=== PATIENT | female | born 1940 | race Caucasian/White ===

== ENCOUNTER 2020-11-18 07:03 | Inpatient (IN) | payer MEDICARE ==
[2020-11-18] MEDS ORDERED: BABY ASPIRIN 81 MG CHEW PO ONE (07:27)
[2020-11-18] MEDS ORDERED: DECADRON 10MG INJ. IV ONE (07:30)
[2020-11-18] MEDS ORDERED: DECADRON 10MG INJ. ONE (07:33)
[2020-11-18] MEDS ORDERED: BABY ASPIRIN 81 MG CHEW ONE (07:33)
[2020-11-18] MEDS ORDERED: TYLENOL EXTRA STRENGTH 500 MG PO STA (07:36)
[2020-11-18] MEDS ORDERED: TYLENOL EXTRA STRENGTH 500 MG ONE (07:37)
--- NOTE | 2020-11-18 07:38 | ERPHSYRPT ---
- History of Present Illness Time Seen by Provider: 11/18/20 07:22 Source: patient Patient Subjective Stated Complaint: Fever Triage Nursing Assessment: ... Physician History: Patient is here with cough, shortness of breath and weakness. Patient states that the symptoms have been going on for for a few days. Patient states that she last had a Covid swab on November 06. She then visited her and [facility]. Her symptoms started soon after. She has no falls or trauma or chest pain. Location: generalized Quality: malasie, SOB, weakness Radiation: none Severity: moderate Duration: "a few days" Timing: gradual Modifying factors/associated signs and symptoms: home OTC Allergies/Adverse Reactions: No Known Drug Allergies Allergy (Unverified 11/18/20 07:23) Home Medications: Levothyroxine Sodium 1 tab PO DAILY 11/18/20 [History] Hx Influenza Vaccination/Date Given: No Hx Pneumococcal Vaccination/Date Given: No Immunizations Up to Date: Yes Travel Risk - International Travel Have you traveled outside of the country in past 3 weeks: No - Coronavirus Screening Are you exhibiting any of the following symptoms?: Yes Symptoms: Fever, Cough: New Onset, Shortness of Breath, Vomiting/Diarrhea, Headaches/Body Aches/Fatigue Close contact with a COVID-19 positive Pt in past 14-21 Days: No - Review of Systems Constitutional: Fever, Chills, Malaise Eyes: No Symptoms Ears, Nose, & Throat: No Symptoms Respiratory: Cough, Dyspnea Cardiac: No Chest Pain, No Edema, No Syncope Abdominal/Gastrointestinal: No Abdominal Pain, No Nausea, No Vomiting, No Diarrhea Genitourinary Symptoms: No Dysuria Musculoskeletal: No Back Pain, No Neck Pain Skin: No Rash Neurological: No Dizziness, No Focal Weakness, No Sensory Changes Psychological: No Symptoms Endocrine: No Symptoms All Other Systems: Reviewed and Negative - Past Medical History Pertinent Past Medical History: Yes Neurological History: No Pertinent History ENT History: No Pertinent History Cardiac History: No Pertinent History Respiratory History: No Pertinent History Endocrine Medical History: Hypothyroidism Musculoskeletal History: No Pertinent History GI Medical History: No Pertinent History History: No Pertinent History Psycho-Social History: No Pertinent History Female Reproductive Disorders: No Pertinent History - Past Surgical History Past Surgical History: Yes Neuro Surgical History: No Pertinent History Cardiac: No Pertinent History Respiratory: No Pertinent History Gastrointestinal: No Pertinent History Genitourinary: No Pertinent History Musculoskeletal: Orthopedic Surgery Female Surgical History: No Pertinent History Other Surgical History: Right hip replacement, Back surgery X 2. - Social History Smoking Status: Never smoker Exposure to second hand smoke: No Drug Use: none Patient Lives Alone: Yes - Nursing Vital Signs Nursing Vital Signs: Initial Vital Signs Temperature 100.0 F 11/18/20 07:25 Pulse Rate 131 H 11/18/20 07:25 Respiratory Rate 25 H 11/18/20 07:25 Blood Pressure 148/113 11/18/20 07:25 O2 Sat by Pulse Oximetry 88 L 11/18/20 07:25 Pain Scale Pain Intensity 0 - Physical Exam General Appearance: no apparent distress, alert Eye Exam: PERRL/EOMI, eyes nml inspection Ears, Nose, Throat Exam: normal ENT inspection, TMs normal, pharynx normal, moist mucous membranes Neck Exam: normal inspection, non-tender, supple, full range of motion Respiratory Exam: crackles/rales, No respiratory distress Cardiovascular Exam: regular rate/rhythm, normal heart sounds, normal peripheral pulses Gastrointestinal/Abdomen Exam: soft, normal bowel sounds, No tenderness, No mass Back Exam: normal inspection, normal range of motion, No CVA tenderness, No vertebral tenderness Extremity Exam: normal inspection, normal range of motion, pelvis stable Neurologic Exam: alert, oriented x 3, cooperative, normal mood/affect, nml cerebellar function, nml station & gait, sensation nml, No motor deficits Skin Exam: normal color, warm, dry, No rash Lymphatic Exam: No adenopathy SpO2: 88 - Course Nursing assessment & vital signs reviewed: Yes EKG Interpreted by Me: Sinus Rhythm Ordered Tests: Active Orders 24 hr Category Date Time Status Boiler Repairman STAT Care 11/18/20 07:28 Active EKG-ER Only STAT Care 11/18/20 07:27 Active IV Insertion STAT Care 11/18/20 07:27 Active CHEST 1 VIEW (PORTABLE) Stat Exams 11/18/20 07:57 Completed CBC W DIFF Stat Lab 11/18/20 07:49 Completed CMP Stat Lab 11/18/20 07:49 Completed CULTURE,URINE Stat Lab 11/18/20 07:44 Received D-DIMER QUANTITATIVE Stat Lab 11/18/20 09:47 Ordered LIPASE Stat Lab 11/18/20 07:49 Completed NT PRO BNP Stat Lab 11/18/20 07:49 Completed TROPONIN Q3H Lab 11/18/20 07:49 Completed TROPONIN Q3H Lab 11/18/20 10:30 Ordered TROPONIN Q3H Lab 11/18/20 13:30 Ordered TROPONIN Q3H Lab 11/18/20 16:30 Ordered TROPONIN Q3H Lab 11/18/20 19:30 Ordered UA W/RFX UR CULTURE Stat Lab 11/18/20 07:44 Completed Medication Summary Discontinued Medications Generic Name Dose Route Start Last Admin Trade Name Freq PRN Reason Stop Dose Admin Acetaminophen 1,000 mg 11/18/20 07:36 11/18/20 07:48 Tylenol Extra Strength 500 Mg PO 11/18/20 07:37 1,000 mg STAT STA Administration Acetaminophen Confirm 11/18/20 07:37 Tylenol Extra Strength 500 Mg Administered 11/18/20 07:38 Dose 1,000 mg .ROUTE .STK-MED ONE Aspirin 324 mg 11/18/20 07:27 11/18/20 07:47 Baby Aspirin 81 Mg Chew PO 11/18/20 07:28 324 mg STAT ONE Administration Aspirin Confirm 11/18/20 07:33 Baby Aspirin 81 Mg Chew Administered 11/18/20 07:34 Dose 324 mg .ROUTE .STK-MED ONE Dexamethasone Sodium Phosphate 8 mg 11/18/20 07:30 11/18/20 07:50 Decadron 10mg Inj. IV 11/18/20 07:31 8 mg STAT ONE Administration Dexamethasone Sodium Phosphate Confirm 11/18/20 07:33 Decadron 10mg Inj. Administered 11/18/20 07:34 Dose 10 mg .ROUTE .STK-MED ONE Sodium Chloride 500 mls @ 500 mls/hr 11/18/20 07:50 11/18/20 09:45 Sodium Chloride 0.9% 500 Ml IV 11/18/20 08:49 Infused .Q1H ONE Infusion Sodium Chloride Confirm 11/18/20 07:53 Sodium Chloride 0.9% 500 Ml Administered 11/18/20 07:54 Dose 500 mls @ ud IV .STK-MED ONE Lab/Rad Data: Laboratory Result Diagrams 11/18/20 07:49 11/18/20 07:49 Laboratory Results 11/18/20 11/18/20 11/18/20 Range/Units 08:19 07:49 07:49 WBC (4.0-10.5) K/mm3 RBC (4.1-5.4) M/mm3 Hgb (12.0-16.0) gm/dl Hct (35-47) % MCV (78-100) fl MCH (26-32) pg MCHC (32-36) g/dl RDW (11.5-14.0) % Plt Count (150-450) K/mm3 MPV (7.5-11.0) fl Gran % (36.0-66.0) % Eos # (Auto) (0-0.5) Absolute Lymphs (auto) (1.0-4.6) Absolute Monos (auto) (0.0-1.3) Lymphocytes % (24.0-44.0) % Monocytes % (0.0-12.0) % Eosinophils % (0.00-5.0) % Basophils % (0.0-0.4) % Absolute Granulocytes (1.4-6.9) Basophils # (0-0.4) Sodium 130 L (137-145) mmol/L Potassium 3.7 (3.5-5.1) mmol/L Chloride 94 L (98-107) mmol/L Carbon Dioxide 26 (22-30) mmol/L Anion Gap 13.4 (5-15) MEQ/L BUN 21 H (7-17) mg/dL Creatinine 0.98 (0.52-1.04) mg/dL Estimated GFR 57.7 ML/MIN Glucose 160 H (74-106) mg/dL Calcium 9.1 (8.4-10.2) mg/dL Total Bilirubin 1.10 (0.2-1.3) mg/dL AST 45 H (14-36) U/L ALT 31 (0-35) U/L Alkaline Phosphatase 76 (38-126) U/L Troponin I 0.036 H* (0.000-0.034) ng/mL NT-Pro-B Natriuret Pep 627 (0-1800) pg/mL Serum Total Protein 7.6 (6.3-8.2) g/dL Albumin 4.0 (3.5-5.0) g/dL Lipase 429 H (23-300) U/L Urine Color (YELLOW) Urine Appearance (CLEAR) Urine pH (5-6) Ur Specific Hob[place] (1.005-1.025) Urine Protein (Negative) Urine Ketones (NEGATIVE) Urine Blood (0-5) Naga/ul Urine Nitrite (NEGATIVE) Urine Bilirubin (NEGATIVE) Urine Urobilinogen (0-1) mg/dL Ur Leukocyte Esterase (NEGATIVE) Urine WBC (Auto) (0-5) /HPF Urine RBC (Auto) (0-2) /HPF U Epithel Cells (Auto) (FEW) /HPF Urine Bacteria (Auto) (NEGATIVE) /HPF Urine Mucus (Auto) (NEGATIVE) /HPF Urine Culture Reflexed (NO) Urine Glucose (NEGATIVE) mg/dL SARS-CoV-2 (PCR) POSITIVE A (NEGATIVE) Slides for Path Review 11/18/20 11/18/20 Range/Units 07:49 07:44 WBC 11.7 H (4.0-10.5) K/mm3 RBC 4.39 (4.1-5.4) M/mm3 Hgb 14.0 (12.0-16.0) gm/dl Hct 41.4 (35-47) % MCV 94.3 (78-100) fl MCH 31.9 (26-32) pg MCHC 33.8 (32-36) g/dl RDW 12.9 (11.5-14.0) % Plt Count 206 (150-450) K/mm3 MPV 11.0 (7.5-11.0) fl Gran % 92.3 H (36.0-66.0) % Eos # (Auto) 0.01 (0-0.5) Absolute Lymphs (auto) 0.48 L (1.0-4.6) Absolute Monos (auto) 0.37 (0.0-1.3) Lymphocytes % 4.1 L (24.0-44.0) % Monocytes % 3.2 (0.0-12.0) % Eosinophils % 0.1 (0.00-5.0) % Basophils % 0.3 (0.0-0.4) % Absolute Granulocytes 10.77 H (1.4-6.9) Basophils # 0.03 (0-0.4) Sodium (137-145) mmol/L Potassium (3.5-5.1) mmol/L Chloride (98-107) mmol/L Carbon Dioxide (22-30) mmol/L Anion Gap (5-15) MEQ/L BUN (7-17) mg/dL Creatinine (0.52-1.04) mg/dL Estimated GFR ML/MIN Glucose (74-106) mg/dL Calcium (8.4-10.2) mg/dL Total Bilirubin (0.2-1.3) mg/dL AST (14-36) U/L ALT (0-35) U/L Alkaline Phosphatase (38-126) U/L Troponin I (0.000-0.034) ng/mL NT-Pro-B Natriuret Pep (0-1800) pg/mL Serum Total Protein (6.3-8.2) g/dL Albumin (3.5-5.0) g/dL Lipase (23-300) U/L Urine Color OTT[place]EL (YELLOW) Urine Appearance CLOUDY (CLEAR) Urine pH 5.0 (5-6) Ur Specific Hob[place] 1.021 (1.005-1.025) Urine Protein 100 (Negative) Urine Ketones TRACE (NEGATIVE) Urine Blood MODERATE (0-5) Naga/ul Urine Nitrite NEGATIVE (NEGATIVE) Urine Bilirubin NEGATIVE (NEGATIVE) Urine Urobilinogen 2 (0-1) mg/dL Ur Leukocyte Esterase NEGATIVE (NEGATIVE) Urine WBC (Auto) 6-10 (0-5) /HPF Urine RBC (Auto) 0-2 (0-2) /HPF U Epithel Cells (Auto) RARE (FEW) /HPF Urine Bacteria (Auto) RARE (NEGATIVE) /HPF Urine Mucus (Auto) SLIGHT (NEGATIVE) /HPF Urine Culture Reflexed YES (NO) Urine Glucose NEGATIVE (NEGATIVE) mg/dL SARS-CoV-2 (PCR) (NEGATIVE) Slides for Path Review YES - Progress Progress: improved Progress Note: 11/18/20 07:37 Differential diagnosis includes COVID-19, STEMI, infection, pneumonia, UTI, sepsis -We will obtain basic labs, antipyretics, cardiac work-up with a chest x-ray. -Patient is on 2 L of oxygen. She was 88 to 91% upon arrival to the emergency department. 11/18/20 09:52 ED critical care statement As staff physician, I have provided critical care. Time: 45 mins Criteria for critical illness: NSTEMI, COVID19, COVID PNA Treatment and management provided include: Coordination of management with ETC care team, consultants, and inpatient care team. [id number] assessment of condition and response to therapy. Review and interpretation of emergent diagnostic testing. Medical chart review and completion. Direction and immediate supervision of the following therapy: Critical care was time spent personally by me on the following activities: blood draw for specimens, development of treatment plan with patient or surrogate, discussions with consultants, discussions with primary provider, interpretation of cardiac output measurements, evaluation of pa tient's response to treatment, examination of patient, obtaining history from patient or surrogate, ordering and performing treatments and interventions, ordering and review of laboratory studies, ordering and review of radiographic studies, pulse oximetry, re-evaluation of patient's condition and review of old charts. This time was independent of all procedures performed. Dheeraj Pollock I discussed with Dr. Horn. He will admit the patient. After reviewing labs, appropriate imaging, discussion with patient and family. We decided the patient should be admitted to the hospital. I called the inpatient team discussed history, physical and results with them in detail. We decided on the plan of action and admission to [facility]. We agreed on appropriate consults and who would call them. Discussed with Dr.: Other (Justina) Will see patient in: hospital (full admit) Counseled pt/family regarding: lab results, diagnosis, need for follow-up, rad results - Departure Departure Disposition: In-patient Admission Clinical Impression: COVID-19 Condition: Stable Critical Care Time: Yes Critical Care Time(excluding separately billable procedures): Critical 30-74 mins Referrals: GIANLUCA CORBIN MD [Primary Care Provider] -
[2020-11-18] MEDS ORDERED: Sodium Chloride 0.9% 500 ML 500 ML IV ONE ×2 (07:50→07:53)
[2020-11-18 07:51] LABS: Absolute Neutrophil Ct (ANC) 10.77 (1.4-6.9); BASOPHIL % 0.3 % (0.0-0.4); Basophil (Absolute #) 0.03 (0-0.4); Eosinophil % 0.1 % (0.00-5.0); Eosinophil (Absolute #) 0.01 (0-0.5); Hematocrit 41.4 % (35-47); Lymphocyte (Absolute #) 0.48 (1.0-4.6); Lymphocytes % 4.1 % (24.0-44.0); Mean Cell Volume 94.3 fl (78-100); Mean Corpuscular Hemoglobin 31.9 pg (26-32); Mean Corpuscular Hgb Concent. 33.8 g/dl (32-36); Monocyte (Absolute #) 0.37 (0.0-1.3); Monocytes % 3.2 % (0.0-12.0); Neutrophil % 92.3 % (36.0-66.0); Platelet Count 206 K/mm3 (150-450); Red Blood Count 4.39 M/mm3 (4.1-5.4); Red Cell Distribution Width 12.9 % (11.5-14.0); White Blood Count 11.7 K/mm3 (4.0-10.5)
[2020-11-18 07:58] LABS: Appearance CLOUDY (CLEAR); Bacteria RARE /HPF (NEGATIVE); Bilirubin NEGATIVE (NEGATIVE); Blood MODERATE Ery/ul (0-5); Epithelial Cells RARE /HPF (FEW); Glucose NEGATIVE (NEGATIVE); Ketones TRACE (NEGATIVE); Leukocyte Esterase NEGATIVE (NEGATIVE); Mucus SLIGHT /HPF (NEGATIVE); Nitrite NEGATIVE (NEGATIVE); Protein,Urine Dip 100 (Negative); RBC 0-2 /HPF (0-2); Specific Gravity 1.021 (1.005-1.025); Urobilinogen 2 mg/dL (0-1)
[2020-11-18 08:18] LABS: ANION GAP 13.4 MEQ/L (5-15); BILIRUBIN,TOTAL 1.1 mg/dL (0.2-1.3); Calcium 9.1 mg/dL (8.4-10.2); Creatinine 1 0.98 mg/dL (0.52-1.04); EST GLOMERULAR FILTRATION RATE 57.7 ML/MIN; Potassium 3.7 mmol/L (3.5-5.1); Total Protein 7.6 g/dL (6.3-8.2)
[2020-11-18 09:04] LABS: Slide Review 1 YES
--- NOTE | 2020-11-18 09:05 | XRAY ---
Indication: Short of breath. Suspect Covid 19. Comparison: None Portable chest demonstrates subtle diffuse bilateral groundglass airspace disease without consolidation/large effusion. Heart is not enlarged. Bony thorax intact with mild degenerative changes.
[2020-11-18] MEDS ORDERED: Ativan 0.5 MG PO PRN (14:10)
[2020-11-18] MEDS ORDERED: REMDESIVIR 200 MG in Sodium Chloride 0.9% 250 ML 250 ML IV ONE (14:15)
--- NOTE | 2020-11-18 14:24 | HP ---
CHIEF COMPLAINT: Shortness of breath, fatigue, cough. HISTORY OF PRESENT ILLNESS: An 80 year old white female who noticed progressing cough, short of breath over the last three days has been coughing, fatigued, just not her usual self. Her was in a retirement where it sounds like he may have from COVID just recently. She came to the emergency room and COVID test was positive. She had an x-ray which is consistent with the start of COVID pneumonia and her D-dimer is markedly elevated. MEDICATIONS: She takes Synthroid unknown dosage on chart and occasionally takes an aspirin for pain. ALLERGIES: NKDA. PAST SURGICAL HISTORY: Right hip surgery in the past. Back surgery x2. SOCIAL HISTORY: Never smoked. . No use of illicit drugs. She lives alone and has one daughter who is on oxygen who is still working. She afraid that she may have exposed her. REVIEW OF SYSTEMS: HEENT: No problems hearing or seeing. CHEST: Shortness of breath for three days. No pain. CVS: No history of heart problems, hypertension. ABDOMEN: No nausea or vomiting. No decreased appetite. EXTREMITIES: The patient walks very well. She said normally she can keep house, lives by herself. PHYSICAL EXAMINATION: The patient is alert, orientated, pleasant, but sad 80 year old white female in no severe distress. VITAL SIGNS: Temperature 100F, pulse 130, respirations 25, blood pressure 140/113. O2 saturation on room is 88%. HEENT: No problems hearing or seeing. Pupils equal and reactive to light. Seems to hear and see normal. CHEST: Few crackles bilateral. Mild shortness of breath increasing for three days. No chest pain. CVS: Tachycardic. No murmurs or gallops. No history of hypertension, heart attack, heart failure. ABDOMEN: Soft. No tenderness or organomegaly. No nausea or vomiting. : No problems urinating. BACK: No back pain. EXTREMITIES: No joint pain. No edema. Good muscle mass for her age. PSYCHIATRIC: The patient's has in the last month. She is still pretty depressed about that as expected. IMPRESSION: 1) COVID pneumonia. 2) Hypoxia. 3) Hypothyroidism. 4) Elevated blood sugar at 260. PLAN: The patient will be treated with Lovenox, Decadron, Remdesivir and followed here as an inpatient.
[2020-11-18] MEDS: SYNTHROID 25 MCG PO SCH (14:56)
[2020-11-18] MEDS ORDERED: ENOXAPARIN SODIUM SQ SCH (15:00)
[2020-11-19] MEDS: TYLENOL EXTRA STRENGTH 500 MG PO PRN ×2 (04:14→08:49)
[2020-11-19] MEDS: SYNTHROID 25 MCG PO SCH (08:49)
[2020-11-19] MEDS ORDERED: Cardizem IV 50 MG/10 ML IV ONE ×2 (11:30→14:30)
[2020-11-19] MEDS: Cardizem 30 MG PO SCH ×2 (11:44→21:48)
[2020-11-19] MEDS: XARELTO 10 MG TABLET PO SCH ×2 (11:44→21:48)
[2020-11-19 12:01] LABS: TSH, 3RD Generation 0.441 mIU/L (0.47-4.68)
[2020-11-19] MEDS: Sodium Chloride 0.9% 1000 ML 1,000 ML IV SCH (14:40)
[2020-11-19] MEDS: CARDIZEM DRIP 100 MG/100 ML D5W 100 ML IV PRN (14:40)
[2020-11-19] MEDS: REMDESIVIR 100 MG in Sodium Chloride 0.9% 100 ML IVPB 100 ML IV SCH (15:34)
[2020-11-20] MEDS: TYLENOL EXTRA STRENGTH 500 MG PO PRN ×3 (06:02→21:09)
[2020-11-20] MEDS ORDERED: Lasix 20 MG/2 ML IV ONE (06:44)
[2020-11-20 06:58] LABS: A-aADO2 407; ABG HEMOGLOBIN 13.3; ABG POTASSIUM 3.3 (3.5-5.1); ABG SITE RIGHT BRACHIAL; ARTERIAL BLD GAS O2 SATURATION 86.6 % (95-100); ARTERIAL BLOOD GAS BASE EXCESS 2.7 (-2.0-2.0); ARTERIAL BLOOD GAS FIO2 70 %; ARTERIAL BLOOD GAS PCO2 36 mmHg (35-45); ARTERIAL BLOOD GAS PO2 47 mmHg (75-100); ARTERIAL BLOOD GAS VENT MODE 15 L OXYMIZER; ARTERIAL BLOOD GAS pH 7.47 (7.35-7.45); CARBOXYHEMOGLOBIN 1.2 % THgb (0.0-6.9); HCO3- 26.2 (22-28); HGB O2 SAT 84.9 g/dF (94-100); Methhemoglobin 0.9 % (1.4-1.5)
[2020-11-20 07:13] LABS: Hematocrit 39.2 % (35-47); Hemoglobin 12.8 gm/dl (12.0-16.0); Mean Cell Volume 96.3 fl (78-100); Mean Corpuscular Hemoglobin 31.4 pg (26-32); Mean Corpuscular Hgb Concent. 32.7 g/dl (32-36); Mean Platelet Volume 11.8 fl (7.5-11.0); Platelet Count 248 K/mm3 (150-450); Red Blood Count 4.07 M/mm3 (4.1-5.4); Red Cell Distribution Width 13.3 % (11.5-14.0); White Blood Count 10.4 K/mm3 (4.0-10.5)
[2020-11-20 07:51] LABS: ALBUMIN 3.5 g/dL (3.5-5.0); ALKALINE PHOSPHATASE 71 U/L (38-126); ANION GAP 11.4 MEQ/L (5-15); BLOOD UREA NITROGEN 28 mg/dL (7-17); CHLORIDE 97 mmol/L (98-107); Calcium 8.7 mg/dL (8.4-10.2); Carbon Dioxide 27 mmol/L (22-30); Creatinine 1 0.94 mg/dL (0.52-1.04); EST GLOMERULAR FILTRATION RATE > 60.0 ML/MIN; Glucose 121 mg/dL (74-106); Potassium 3.5 mmol/L (3.5-5.1); SGOT/AST 42 U/L (14-36); SGPT/ALT 27 U/L (0-35); SODIUM 133 mmol/L (137-145); Total Protein 6.8 g/dL (6.3-8.2)
[2020-11-20] MEDS: CARDIZEM DRIP 100 MG/100 ML D5W 100 ML IV PRN (08:53)
[2020-11-20] MEDS: Cardizem 30 MG PO SCH ×2 (08:56→21:07)
[2020-11-20] MEDS: SYNTHROID 25 MCG PO SCH (08:56)
[2020-11-20] MEDS: XARELTO 10 MG TABLET PO SCH ×2 (08:56→21:07)
[2020-11-20 10:11] LABS: INR 2.62 (0.8-3.0); PROTIME 29.9 SECONDS (9.95-12.35)
[2020-11-20] MEDS ORDERED: Cardizem 30 MG PO ONE (13:13)
[2020-11-20] MEDS: REMDESIVIR 100 MG in Sodium Chloride 0.9% 100 ML IVPB 100 ML IV SCH (15:29)
[2020-11-20] MEDS: Sodium Chloride 0.9% 1000 ML 1,000 ML IV SCH (15:30)
[2020-11-20] MEDS: Decadron 4 MG INJ IV SCH ×2 (16:18→21:09)
--- NOTE | 2020-11-20 18:00 | XRAY ---
Indication: Dyspnea. Positive Covid 19. Comparison: November 18, 2020. Portable chest demonstrates mild worsening diffuse bilateral airspace disease again without consolidation/large effusion. Heart is now borderline enlarged. Comment: Preliminary interpretation was made by [facility]. No critical discrepancy.
[2020-11-21 06:31] LABS: INR 3.01 (0.8-3.0); PROTIME 34.4 SECONDS (9.95-12.35)
[2020-11-21 06:38] LABS: ALBUMIN 3.3 g/dL (3.5-5.0); ALKALINE PHOSPHATASE 74 U/L (38-126); ANION GAP 9.6 MEQ/L (5-15); BLOOD UREA NITROGEN 33 mg/dL (7-17); CHLORIDE 98 mmol/L (98-107); Calcium 8.6 mg/dL (8.4-10.2); Carbon Dioxide 30 mmol/L (22-30); Creatinine 1 0.85 mg/dL (0.52-1.04); EST GLOMERULAR FILTRATION RATE > 60.0 ML/MIN; Glucose 254 mg/dL (74-106); Potassium 4.1 mmol/L (3.5-5.1); SGOT/AST 36 U/L (14-36); SGPT/ALT 27 U/L (0-35); SODIUM 133 mmol/L (137-145); Total Protein 6.6 g/dL (6.3-8.2)
[2020-11-21] MEDS: Decadron 4 MG INJ IV SCH ×2 (09:40→21:51)
[2020-11-21] MEDS: Cardizem 30 MG PO SCH ×2 (09:40→21:50)
[2020-11-21] MEDS: SYNTHROID 25 MCG PO SCH (09:41)
[2020-11-21] MEDS: REMDESIVIR 100 MG in Sodium Chloride 0.9% 100 ML IVPB 100 ML IV SCH (14:48)
[2020-11-22 06:28] LABS: Hematocrit 39.1 % (35-47); Hemoglobin 12.9 gm/dl (12.0-16.0); Mean Cell Volume 96.1 fl (78-100); Mean Corpuscular Hemoglobin 31.7 pg (26-32); Platelet Count 328 K/mm3 (150-450); Red Blood Count 4.07 M/mm3 (4.1-5.4); Red Cell Distribution Width 12.9 % (11.5-14.0); White Blood Count 16.8 K/mm3 (4.0-10.5)
[2020-11-22 06:34] LABS: ALBUMIN 2.8 g/dL (3.5-5.0); ALKALINE PHOSPHATASE 72 U/L (38-126); ANION GAP 9.3 MEQ/L (5-15); BLOOD UREA NITROGEN 31 mg/dL (7-17); CHLORIDE 98 mmol/L (98-107); Calcium 8.5 mg/dL (8.4-10.2); Carbon Dioxide 29 mmol/L (22-30); Creatinine 1 0.76 mg/dL (0.52-1.04); EST GLOMERULAR FILTRATION RATE > 60.0 ML/MIN; Glucose 196 mg/dL (74-106); Potassium 4.2 mmol/L (3.5-5.1); SGOT/AST 34 U/L (14-36); SGPT/ALT 24 U/L (0-35); SODIUM 132 mmol/L (137-145); Total Protein 5.6 g/dL (6.3-8.2)
[2020-11-22 06:39] LABS: INR 1.8 (0.8-3.0); PROTIME 20.5 SECONDS (9.95-12.35)
[2020-11-22] MEDS: Sodium Chloride 0.9% 1000 ML 1,000 ML IV SCH ×3 (07:36→22:07)
[2020-11-22] MEDS: Decadron 4 MG INJ IV SCH ×2 (09:16→22:06)
[2020-11-22] MEDS: Cardizem 30 MG PO SCH ×2 (09:16→22:06)
[2020-11-22] MEDS: SYNTHROID 25 MCG PO SCH (09:17)
[2020-11-22] MEDS: Levofloxacin 500MG/100ML D5W 500 MG/100 ML BAG IV SCH (11:57)
[2020-11-22] MEDS: REMDESIVIR 100 MG in Sodium Chloride 0.9% 100 ML IVPB 100 ML IV SCH (14:21)
--- NOTE | 2020-11-22 18:48 | XRAY ---
Indication: Positive Covid 19. Comparison: November 20, 2020. Portable chest again demonstrates diffuse bilateral airspace disease, moderately worsened throughout the left lung appearing more consolidated. Heart remains borderline enlarged. No other cardiopulmonary abnormalities.
[2020-11-23 05:23] LABS: Hematocrit 41.1 % (35-47); Hemoglobin 13.3 gm/dl (12.0-16.0); Mean Cell Volume 96.9 fl (78-100); Mean Corpuscular Hemoglobin 31.4 pg (26-32); Mean Corpuscular Hgb Concent. 32.4 g/dl (32-36); Platelet Count 347 K/mm3 (150-450); Red Blood Count 4.24 M/mm3 (4.1-5.4); Red Cell Distribution Width 13.2 % (11.5-14.0); White Blood Count 13.2 K/mm3 (4.0-10.5)
[2020-11-23 05:32] LABS: INR 1.55 (0.8-3.0); PROTIME 17.6 SECONDS (9.95-12.35)
[2020-11-23 05:36] LABS: ALKALINE PHOSPHATASE 76 U/L (38-126); ANION GAP 9.7 MEQ/L (5-15); BLOOD UREA NITROGEN 31 mg/dL (7-17); CHLORIDE 101 mmol/L (98-107); Calcium 8.5 mg/dL (8.4-10.2); Carbon Dioxide 24 mmol/L (22-30); Creatinine 1 0.75 mg/dL (0.52-1.04); EST GLOMERULAR FILTRATION RATE > 60.0 ML/MIN; Glucose 228 mg/dL (74-106); Potassium 4.5 mmol/L (3.5-5.1); SGOT/AST 44 U/L (14-36); SGPT/ALT 20 U/L (0-35); SODIUM 130 mmol/L (137-145); Total Protein 6.3 g/dL (6.3-8.2)
[2020-11-23] MEDS: Decadron 4 MG INJ IV SCH ×2 (11:00→21:31)
[2020-11-23] MEDS: Cardizem 30 MG PO SCH ×2 (11:00→21:31)
[2020-11-23] MEDS: SYNTHROID 25 MCG PO SCH (11:00)
[2020-11-23] MEDS: Levofloxacin 500MG/100ML D5W 500 MG/100 ML BAG IV SCH (12:33)
[2020-11-23] MEDS: Ativan 1 MG PO PRN (23:16)
[2020-11-24] MEDS ORDERED: PHARMACY DOSING REQUEST MC ONE (07:34)
[2020-11-24] MEDS ORDERED: Hydromorphone 1 mg/ml Injection IV PRN (08:56)
[2020-11-24] MEDS: ENOXAPARIN SODIUM SQ SCH (09:15)
[2020-11-24] MEDS: SYNTHROID 25 MCG PO SCH (09:16)
[2020-11-24] MEDS: Decadron 4 MG INJ IV SCH ×2 (09:16→22:00)
[2020-11-24] MEDS: Cardizem 30 MG PO SCH ×2 (09:21→22:00)
[2020-11-24] MEDS ORDERED: ENOXAPARIN SODIUM SQ SCH (10:00)
[2020-11-24 10:10] LABS: Hematocrit 41.3 % (35-47); Hemoglobin 13.5 gm/dl (12.0-16.0); Mean Cell Volume 98.1 fl (78-100); Mean Corpuscular Hemoglobin 32.1 pg (26-32); Mean Corpuscular Hgb Concent. 32.7 g/dl (32-36); Mean Platelet Volume 11.7 fl (7.5-11.0); Platelet Count 382 K/mm3 (150-450); Red Blood Count 4.21 M/mm3 (4.1-5.4); Red Cell Distribution Width 13.3 % (11.5-14.0); White Blood Count 12.9 K/mm3 (4.0-10.5)
--- NOTE | 2020-11-24 10:20 | XRAY ---
Indication: Positive Covid 19. Comparison: November 22, 2020. Portable chest continues to demonstrate diffuse bilateral airspace disease with minimal improvement in left lung. Heart remains borderline enlarged. No new cardiopulmonary abnormalities.
[2020-11-24] MEDS: Levofloxacin 500MG/100ML D5W 500 MG/100 ML BAG IV SCH (11:33)
[2020-11-24] MEDS: Sodium Chloride 0.9% 1000 ML 1,000 ML IV SCH (11:46)
[2020-11-25] MEDS: Cardizem 30 MG PO SCH ×2 (10:04→23:22)
[2020-11-25] MEDS: Decadron 4 MG INJ IV SCH ×2 (10:04→22:00)
[2020-11-25] MEDS: ENOXAPARIN SODIUM SQ SCH (10:05)
[2020-11-25] MEDS: SYNTHROID 25 MCG PO SCH (10:05)
[2020-11-25] MEDS: Levofloxacin 500MG/100ML D5W 500 MG/100 ML BAG IV SCH (12:43)
[2020-11-26] MEDS: Ativan 1 MG PO PRN ×2 (01:31→22:17)
[2020-11-26] MEDS: Sodium Chloride 0.9% 1000 ML 1,000 ML IV SCH ×2 (07:29→09:29)
--- NOTE | 2020-11-26 08:40 | CONS ---
CONSULT DATE: 11/25/2020 HISTORY: Ronit Black is an 80 year old woman who has been diagnosed with having COVID-19 and COVID pneumonia with treatment including Remdesivir therapy. However the patient has not shown any meaningful clinical improvement. The patient also has developed new onset atrial fibrillation and has been on anticoagulation, developed coagulopathy and Coumadin was placed on hold. Currently she is on Lovenox. The patient appears somewhat depressed. She apparently also developed COVID-19 recently. The patient appears somewhat depressed. She apparently lost her due to COVID-19 recently as well. PAST MEDICAL HISTORY: Positive for hypothyroidism. PAST SURGICAL HISTORY: Right hip surgery and back surgery x2. PERSONAL AND SOCIAL HISTORY: She is a nonsmoker. MEDICATIONS: Medications are reviewed. ALLERGIES: NKDA. PHYSICAL EXAMINATION: This is an elderly woman who appears not in any distress. Vital signs noted. HEENT: Normocephalic. Oral exam limited, dry oral mucosa. She is currently on Oxymizer. NECK: Supple. Accessory muscles are mildly prominent. CVS: Heart sounds are irregular. RESPIRATORY: Shows diminished breath sounds, occasional crackles are heard. ABDOMEN: Obese. EXTREMITIES: No edema is noted. LABORATORY DATA AND TESTS: Labs, x-rays and medications were all reviewed. ASSESSMENT: This is an 80 year old woman admitted with: 1) Acute hypoxic respiratory failure. 2) COVID-19 infection. 3) Viral pneumonia. 4) Depression from recent loss of spouse as well as her own infection. 5) New onset atrial fibrillation. RECOMMENDATIONS: 1) I agree with current treatment. 2) Advised to adjust dose of Lovenox either to 1 mg/kg subcu q.12h or 1.5 mg/kg subcu once daily. 3) Continue supplemental oxygen. 4) The patient do better in home environment. If family is able to take care of the patient, she may be discharged home on palliative care given her age and comorbidities. I will be available and will follow her with you over the next few days to see clinical improvement. Unfortunately her prognosis appears guarded at best. Thank you for allowing me to participate in the care of Ronit Black.
[2020-11-26] MEDS: ENOXAPARIN SODIUM SQ SCH (09:27)
[2020-11-26] MEDS: SYNTHROID 25 MCG PO SCH (09:27)
[2020-11-26] MEDS: Decadron 4 MG INJ IV SCH ×2 (09:27→22:17)
[2020-11-26] MEDS: Cardizem 30 MG PO SCH ×2 (09:30→22:17)
[2020-11-26] MEDS: Levofloxacin 500MG/100ML D5W 500 MG/100 ML BAG IV SCH (11:54)
--- NOTE | 2020-11-26 15:06 | PROG NOTE ---
CONSULT DATE: 11/26/2020 Events noted. Chart reviewed. HISTORY: The patient appears comfortable, remains on oxygen via Oxymizer at 15 liters but does report feeling better than before. Vital signs noted. PHYSICAL EXAMINATION: HEENT: Normocephalic. Oral exam is limited. NECK: Supple. CVS: First and second heart sounds irregular. RESPIRATORY: Shows diminished breath sounds. Crackles are heard. ABDOMEN: Obese. EXTREMITIES: Trace edema is noted. ASSESSMENT: This is an 80 year old woman admitted with: 1) Acute/chronic hypoxic respiratory failure. 2) Status post COVID-19. 3) Viral pneumonia, pulmonary fibrosis? 4) New onset atrial fibrillation. 5) Debilitation. RECOMMENDATIONS: The patient still remains on 15 liters via Oxymizer. At this time potentially will wean down to 10 liters where possibly the patient can start with palliative care service. Continue other management. Prognosis appears guarded at best.
[2020-11-27] MEDS: Cardizem 30 MG PO SCH ×2 (09:06→22:51)
[2020-11-27] MEDS: Decadron 4 MG INJ IV SCH ×2 (09:06→22:51)
[2020-11-27] MEDS: SYNTHROID 25 MCG PO SCH (09:06)
[2020-11-27] MEDS: ENOXAPARIN SODIUM SQ SCH (09:07)
[2020-11-27] MEDS ORDERED: xanAX 0.5 MG PO SCH (10:00)
[2020-11-27] MEDS ORDERED: xanAX 0.5 MG PO PRN (10:45)
[2020-11-27] MEDS: Levofloxacin 500MG/100ML D5W 500 MG/100 ML BAG IV SCH (13:12)
[2020-11-27] MEDS: Sodium Chloride 0.9% 1000 ML 1,000 ML IV SCH (22:06)
[2020-11-27] MEDS: Ativan 1 MG PO PRN (22:52)
[2020-11-28] MEDS: Decadron 4 MG INJ IV SCH ×2 (09:13→21:55)
[2020-11-28] MEDS: SYNTHROID 25 MCG PO SCH (09:13)
[2020-11-28] MEDS: ENOXAPARIN SODIUM SQ SCH (09:14)
[2020-11-28] MEDS: Cardizem 30 MG PO SCH ×2 (09:14→21:55)
[2020-11-28] MEDS: Sodium Chloride 0.9% 1000 ML 1,000 ML IV SCH (21:35)
[2020-11-28] MEDS: Ativan 1 MG PO PRN (21:55)
[2020-11-29 06:55] LABS: Hematocrit 44.2 % (35-47); Hemoglobin 14.9 gm/dl (12.0-16.0); Mean Cell Volume 93.2 fl (78-100); Mean Corpuscular Hemoglobin 31.4 pg (26-32); Mean Corpuscular Hgb Concent. 33.7 g/dl (32-36); Mean Platelet Volume 11.1 fl (7.5-11.0); Platelet Count 409 K/mm3 (150-450); Red Blood Count 4.74 M/mm3 (4.1-5.4); Red Cell Distribution Width 12.7 % (11.5-14.0); White Blood Count 15.5 K/mm3 (4.0-10.5)
[2020-11-29 07:23] LABS: INR 1.12 (0.8-3.0); PROTIME 12.7 SECONDS (9.95-12.35)
[2020-11-29 07:27] LABS: ALKALINE PHOSPHATASE 73 U/L (38-126); ANION GAP 9.9 MEQ/L (5-15); BLOOD UREA NITROGEN 34 mg/dL (7-17); CHLORIDE 92 mmol/L (98-107); Calcium 8.5 mg/dL (8.4-10.2); Carbon Dioxide 29 mmol/L (22-30); Creatinine 1 0.81 mg/dL (0.52-1.04); EST GLOMERULAR FILTRATION RATE > 60.0 ML/MIN; Glucose 302 mg/dL (74-106); Potassium 4.8 mmol/L (3.5-5.1); SGOT/AST 22 U/L (14-36); SGPT/ALT 19 U/L (0-35); SODIUM 125 mmol/L (137-145); Total Protein 5.9 g/dL (6.3-8.2)
[2020-11-29] MEDS: Cardizem 30 MG PO SCH ×2 (09:44→21:51)
[2020-11-29] MEDS: ENOXAPARIN SODIUM SQ SCH (09:45)
[2020-11-29] MEDS: SYNTHROID 25 MCG PO SCH (09:45)
[2020-11-29] MEDS: Decadron 4 MG INJ IV SCH ×2 (09:45→21:51)
[2020-11-29] MEDS: Ativan 1 MG PO PRN (21:51)
[2020-11-30 05:44] LABS: Hematocrit 42.4 % (35-47); Hemoglobin 14.4 gm/dl (12.0-16.0); Mean Cell Volume 92.6 fl (78-100); Mean Corpuscular Hemoglobin 31.4 pg (26-32); Mean Platelet Volume 11.2 fl (7.5-11.0); Platelet Count 358 K/mm3 (150-450); Red Blood Count 4.58 M/mm3 (4.1-5.4); Red Cell Distribution Width 12.6 % (11.5-14.0)
[2020-11-30 06:01] LABS: ANION GAP 6.5 MEQ/L (5-15); Potassium 4.9 mmol/L (3.5-5.1)
[2020-11-30] MEDS: Cardizem 30 MG PO SCH ×2 (09:17→21:34)
[2020-11-30] MEDS: SYNTHROID 25 MCG PO SCH (09:18)
[2020-11-30] MEDS: ENOXAPARIN SODIUM SQ SCH (09:19)
[2020-11-30] MEDS: Decadron 4 MG INJ IV SCH ×2 (09:19→21:34)
--- NOTE | 2020-11-30 10:12 | PROG NOTE ---
CONSULT DATE: 11/28/2020 Events noted. Chart reviewed. The patient is awake, comfortable, appears tired but not in distress. Vital signs noted. PHYSICAL EXAMINATION: HEENT: Normocephalic. Oral exam limited. CVS: First and second heart sounds are normal, regular, rhythmic. RESPIRATORY: Shows diminished breath sounds, fairly clear. ABDOMEN: Soft. EXTREMITIES: No significant edema noted. LABORATORY DATA AND TESTS: D-dimer is 2187 declining. ASSESSMENT: This is an 80 year old woman admitted with: 1) Acute hypoxic respiratory failure. 2) COVID-19 infection. 3) Viral pneumonia. 4) Paroxysmal atrial fibrillation. 5) Generalized debilitation. RECOMMENDATIONS: 1) The patient appears to be improving. She has been reduced down to 8 liters via Oxymizer. Continue to wean supplemental oxygen. The patient may be able to go home on 10 liters concentrator. 2) Continue steroids, continue anticoagulation. I will be available as needed. Thank you for allowing me to participate in the care of.
[2020-11-30] MEDS ORDERED: Valium 5 MG ONE (17:35)
[2020-11-30] MEDS ORDERED: ZOLOFT 50 MG TABLET ONE (20:54)
[2020-11-30] MEDS: Ativan 1 MG PO PRN (21:34)
[2020-12-01] MEDS: Cardizem 30 MG PO SCH (09:06)
[2020-12-01] MEDS: Decadron 4 MG INJ IV SCH (09:07)
[2020-12-01] MEDS: ENOXAPARIN SODIUM SQ SCH (09:08)
[2020-12-01] MEDS: SYNTHROID 25 MCG PO SCH (09:08)
[2020-12-01] MEDS ORDERED: ZOLOFT 50 MG TABLET PO SCH ×2 (10:00→22:00)
--- NOTE | 2020-12-01 11:02 | DS ---
ADMISSION DIAGNOSES: 1) Bilateral COVID pneumonia. 2) Respiratory distress syndrome. 3) Bacterial pneumonia. DISCHARGE DIAGNOSES: 1) BILATERAL COVID PNEUMONIA. 2) RESPIRATORY DISTRESS SYNDROME. 3) BACTERIAL PNEUMONIA. DISCHARGE PLAN: The patient is going to [facility]. She came in with a concentrator on her at 5 liters. She will be on some Lovenox for a while. She will be on prednisone 20 x5, 10 x5. She also had antidepressant Zoloft 50 mg for severe depression for the last week that she did not have when she came in. PROGNOSIS: Fair. HOSPITAL COURSE: She has been steadily gaining over the last week. She was at one time on maximum high flow oxygen. She made herself a No Code otherwise she might have ended up intubated at that time but she did turn the corner. Her white count went up half way through and she was put on Levaquin 1 gm q.d. for about a week. Her temperature went down. Her white count normalized. She had some paroxysmal atrial fibrillation which apparently she had in the past. Dr. Clark saw her on 11/28/2020 and was happy with the way things were doing, had no further advice, I believe. She had hip surgery in the distant past and two back surgeries. She has hypothyroidism. Blood sugar was elevated here mostly due to the Decadron. Home medicines before she came here were Synthroid 100 mcg q.d. and that needs to be checked. She was on Cardizem drip for atrial fibrillation and placed on Cardizem to try to keep her out of atrial fibrillation or at least controlled when she goes into it. Her Levaquin was discontinued on 11/28/2020. Cardizem is 120 b.i.d. Levothyroxine dose correction was 0.25 mg. Her prognosis is felt to be good although she right now the best she can do is sit in a chair. She is mentally alert, orientated, very nice lady. She has been doing reasonably well for 80. Plans to get her strength back and hopefully to return home. I did notice on 11/30/2020 her sodium was 124 and we were running an IV of normal saline and discontinued that so she probably should start concentrating better. Her last D-dimer yesterday was 1,330. She will be anticoagulated. Because of the atrial fibrillation, her D-dimer was as high as 5,000. Again, new medications: She will continue on her Synthroid 0.25, Cardizem 120 b.i.d. Repeat electrolytes, D-dimer and TSH in one week. Zoloft 50 q.d. for new onset depression. Xarelto on chronic basis due to spells of atrial fibrillation. She will be seen in follow up in one to two weeks. She is no longer infectious with COVID as she has been here for 12 days. She has had no fever or chills and her lungs have slowly improved. Repeat chest x-ray showed bilateral lower lobe pneumonia as expected. Hopes of full recovery at [facility] down the [place]. Advised to return her here if she gets sick. I believe her regular doctor is Dr. Hendrickson.
[2020-12-01 11:51] VITALS: BP 133/72
[2020-12-01 13:18] VITALS: PULSE 74; O2SAT 91
== END 2020-12-01 13:47 | DRG 177 ==
LOC: ED 07:03 → MED SURG 11:15 → OBSVTOIN 11:15
PROVIDERS: ADMIT Family Medicine; ATTEND Family Medicine
DX: U07.1 COVID-19 (principal); J12.89 Other viral pneumonia; J80 Acute respiratory distress syndrome; F32.9 Major depressive disorder, single episode, unspecified; I48.0 Paroxysmal atrial fibrillation; R73.9 Hyperglycemia, unspecified; E03.9 Hypothyroidism, unspecified; R53.81 Other malaise; Z79.899 Other long term (current) drug therapy; Z79.01 Long term (current) use of anticoagulants
CPT/HCPCS: 36000; 36415; 36600; 71045; 80051; 80053; 81001; 82375; 82550; 82803; 83036; 83690; 83880; 84443; 84484; 85025; 85027; 85379; 85610; 87086; 93005; 93041; 94762; 96360; 96374; 99285; 99291; U0003; J1100; J1170; J1650; J1940; J1956; A9270-GY